=== PATIENT | female | born 1950 | race Two or more races ===

== ENCOUNTER 2021-12-24 04:49 | Inpatient (IN) | payer MEDICARE, OTHER ==
[~2021-12-24] VITALS: Ht 157.5 cm; Wt 101.2 kg
[2021-12-24 17:00] VITALS: BP 121/76
--- NOTE | 2021-12-24 17:00 | NUR ---
OFFICE CLERK ROUTINE NOTES PATIENT DIRECT ADMIT FROM [facility] ER PATIENT VISITED ER WITH HER FAMILY FOR PSYCH EVALUATION.PATIENT ON HOLD 5150 GD , DX OF PSYCHOSIS NOS, Hx OF SCHIZOPHRENIA NOT TAKING MEDICATION, AND UNABLE TO TAKE CARE SELF. PATIENT A/O X1, REFUSED TO SPEAK, REFUSED EAT. VSS, NO ACUTE RESPIRATORY DISTRESS, BS-137MG/DL, REFUSED PAIN. SKIN ASSESSMENT DONE SKIN INTACT. ASSIST PATIENT TO THE BATHROOM. MRSA OF NARES SPECIMEN TAKEN. Dr JOHNSON, AND DR ESTEBAN AWARE OF NEW PATIENT AND MEDICATION, CALL BEL NEAR TO REACH, BED ALARM ON. SAFETY PRECAUTION MAINTAINED ALL THE TIME.
[2021-12-24] MEDS ORDERED: RISP2TAB85 PO ×2 (17:10→20:38)
[2021-12-24] MEDS ORDERED: VITA400C74 PO (17:25)
[2021-12-24] MEDS ORDERED: ZOLP5TAB8 PO (17:25)
[2021-12-24] MEDS ORDERED: CHOL500062 PO ×2 (17:25→20:40)
[2021-12-24] MEDS ORDERED: ASCO500T10 PO (17:25)
[2021-12-24] MEDS ORDERED: MULT-479 PO (17:25)
[2021-12-24] MEDS ORDERED: LORA-259 PO (17:25)
[2021-12-24] MEDS ORDERED: LAMO25TA10 PO ×2 (17:25)
[2021-12-24] MEDS ORDERED: NORT25CA PO ×2 (17:25→20:37)
[2021-12-24] MEDS ORDERED: LISI2.5T2 PO (17:25)
[2021-12-24] MEDS ORDERED: ATOR10TA PO (17:25)
[2021-12-24] MEDS ORDERED: LEVO125T8 PO (17:25)
[2021-12-24] MEDS ORDERED: ARIP10TA57 PO (17:26)
[2021-12-24] MEDS ORDERED: MAG HYDROX/AL HYDROX/SIMETH 30 ML UDC PO PRN (17:30)
[2021-12-24] MEDS ORDERED: ACETAMINOPHEN 325 MG TABLET PO PRN (17:30)
[2021-12-24] MEDS ORDERED: BLOOD SUGAR DIAGNOSTIC 1 EACH STRIP IN ONE (17:30)
[2021-12-24] MEDS ORDERED: MAGNESIUM HYDROXIDE 30 ML UDC PO PRN (17:30)
[2021-12-24 20:00] VITALS: BP 159/71
[2021-12-24] MEDS ORDERED: ASPI-1420 PO (20:33)
[2021-12-24] MEDS: ZOLPIDEM TARTRATE 5 MG TABLET PO PRN (21:16)
--- NOTE | 2021-12-24 21:16 | NUR ---
GPS RN NOTE, PATIENT IS A DIRECT ADMIT NEEDS ACCU CHECK ORDER AND A MEDICATION RECONCILIATION. PAGED [facility] AND INFORMED DR ESTEBAN OF MY FINDINGS. DR ESTEBAN ORDERED MODERATE INSULIN SLIDING SCALE ACHS AND SAID SHE WILL DO THE MEDICATION RECONCILIATION WHEN SHE CAN. ALL ORDERS NOTED AND CARRIED OUT WILL CONTINUE TO MONITOR THIS PATIENT WITH THE HELP OF STAFF.
[2021-12-24] MEDS ORDERED: DEXTROSE 50%-WATER 50 ML DISP.SYRIN IV PRN (21:30)
[2021-12-25] MEDS ORDERED: BLOOD SUGAR DIAGNOSTIC 1 EACH STRIP VI SCH (07:00)
[2021-12-25] MEDS: LEVOTHYROXINE SODIUM 125 MCG TABLET PO SCH (07:00)
[2021-12-25] MEDS: BLOOD SUGAR DIAGNOSTIC 1 EACH STRIP VI SCH ×4 (07:39→22:02)
[2021-12-25 08:00] VITALS: BP 161/77
[2021-12-25] MEDS: LISINOPRIL (5MG) 5 MG TABLET PO SCH (09:00)
[2021-12-25] MEDS ORDERED: Medication Not On Formulary EA (Cholecalciferol (Vitamin D3) (Vitamin D3) 1 TAB) PO SCH (09:00)
[2021-12-25] MEDS: ASPIRIN EC 81 MG TABLET.DR PO SCH (09:00)
[2021-12-25] MEDS: MULTIVITAMIN/LUTEIN/MINERALS 1 TAB PO SCH (09:00)
[2021-12-25] MEDS: CHOLECALCIFEROL 1,000 UNIT TABLET (VIT D3) PO SCH (09:00)
[2021-12-25] MEDS: LamoTRIgine 25 MG TABLET PO SCH ×3 (09:00→22:03)
[2021-12-25] MEDS: VITAMIN E 400 UNIT CAPSULE PO SCH (09:00)
[2021-12-25] MEDS: ASCORBIC ACID 500 MG TABLET PO SCH (09:00)
--- NOTE | 2021-12-25 09:34 | NUR ---
AYDEE Initial Discharge Plan: Pt currently resides at [address] [place] [address] Rd, [place] [address]. Pt is unable to communicate her discahrge requests, however, the pt's spray dry operator, Ekta ([phone]) and pt's Saud stated that the pt can return home upon discharge.AYDEE will continue to work with pt, family, and MD to ensure a safe and proper discharge plan.
--- NOTE | 2021-12-25 09:37 | NUR ---
SW Admit Source: Patient was at [facility] in the ER for psych evaluation. Pt was unresponsive and was not answering any questions. Pt was not taking medications at home. Pt placed on a 5150 hold for GD and was brought to [facility]. Pt currently resides at [address] [place] [phone]. Pt is unable to communicate her discahrge requests, however, the pt's mine captain, Ekta ([phone]) and pt's Saud stated that the pt can return home upon discharge.
--- NOTE | 2021-12-25 09:46 | NUR ---
AYDEE Family Contact: AYDEE contacted patient's Saud ([phone]) and discussed treatment and discharge plan.
--- NOTE | 2021-12-25 10:25 | NUR ---
Called the office of Dr. Khoury and spoke to Aidee about the consult.
--- NOTE | 2021-12-25 11:37 | NUR ---
AYDEE Individual Therapy: AYDEE attempted to conduct therapy with pt. Pt did not answer to this underwriter. Pt kept her eyes closed and did not want to maintain any eye contact. AYDEE unable to conduct therapy at this time.
[2021-12-25 11:45] LABS: ALBUMIN 3.6 g/dL (3.4-5.0); BILIRUBIN,TOTAL 0.5 mg/dL (0.2-1.0); CALCIUM, SERUM 9.3 mg/dL (8.5-10.1)
[2021-12-25 12:19] LABS: POTASSIUM 4.2 mmol/L (3.5-5.1)
[2021-12-25 16:00] VITALS: BP 117/63
--- NOTE | 2021-12-25 16:22 | NUR ---
Dr. Spencer in the unit, examined the pt. and ordered Lamictal level for today.
[2021-12-25] MEDS: ENSURE ENLIVE 237 ML LIQUID (VANILLA) PO SCH (17:00)
[2021-12-25] MEDS: risperiDONE 1 MG TABLET PO SCH (17:00)
[2021-12-25 17:21] LABS: CHOLESTEROL 138 mg/dL (<200); HDL CHOLESTEROL 75 mg/dL (40-60); LDL 43 mg/dL (0-99); TRIGLYCERIDES 49 mg/dL (30-150)
[2021-12-25 17:29] LABS: THYROID STIMULATING HORMONE 2.795 uIU/mL (0.358-3.74)
--- NOTE | 2021-12-25 19:15 | NUR ---
RN NOTES; RECEIVED AWAKE SHE IS USING HER WALKER, VERY QUIET, ORIENTED TO UNIT AND STAFF, RN ASSIST HER TO GO BACK TO HER BED SHE REFUSED TO SIT DOWN BY THE BED SIDE, KEPT ON CLOSE WATCH, FALL AND SAFETY PRECAUTION OBSERVED.
[2021-12-25 20:00] VITALS: BP 109/51
[2021-12-25 20:16] VITALS: BP 109/51
[2021-12-25] MEDS: ATORVASTATIN 10 MG TABLET PO SCH (22:03)
[2021-12-25] MEDS: NORTRIPTYLINE HCL 25 MG CAPSULE PO SCH (22:03)
[2021-12-25] MEDS: *INSULIN REGULAR(HUMULIN R)HUM 100 UNIT/ML VIAL SQ PRN (22:06)
--- NOTE | 2021-12-25 22:17 | NUR ---
RN NOTES: AGREE FOR BLOOD SUGAR CHECKED-165, INSULIN GIVEN PER SCALE, SHE TOOK ALL HER ORAL MEDICATION WITH APPLESAUCE,INSTRUCT TO GO BACK TO BED AND SLEEP, SHE FOLLOW.WILL CONTINUE TO MONITOR FOR SIGN OF HYPER/HYPOGLYCEMIA.
--- NOTE | 2021-12-26 04:16 | NUR ---
RN NOTES: -AWAKE, AMBULATE WITH FWW, STEADY GAIT, SHE COMMUNICATE AND ANSWER QUESTION BY THE CHARGE NURSE,SHE UNDERSTAND THE REASON WHY SHE IS IN [facility] BECAUSE SHE CANNOT CARE FOR HERSELF,GIVEN SNACKS AND SHE ATE.
[2021-12-26] MEDS: LEVOTHYROXINE SODIUM 125 MCG TABLET PO SCH (06:06)
[2021-12-26] MEDS: BLOOD SUGAR DIAGNOSTIC 1 EACH STRIP VI SCH ×4 (07:30→21:45)
[2021-12-26 08:00] VITALS: BP 145/67
[2021-12-26] MEDS: ENSURE ENLIVE 237 ML LIQUID (VANILLA) PO SCH ×2 (08:00→17:00)
[2021-12-26] MEDS: LamoTRIgine 25 MG TABLET PO SCH ×3 (08:39→21:49)
[2021-12-26] MEDS: MULTIVITAMIN/LUTEIN/MINERALS 1 TAB PO SCH (08:39)
[2021-12-26] MEDS: ASPIRIN EC 81 MG TABLET.DR PO SCH (08:39)
[2021-12-26] MEDS: risperiDONE 1 MG TABLET PO SCH ×2 (08:40→17:00)
[2021-12-26] MEDS: CHOLECALCIFEROL 1,000 UNIT TABLET (VIT D3) PO SCH (08:40)
[2021-12-26] MEDS: LISINOPRIL (5MG) 5 MG TABLET PO SCH (08:40)
[2021-12-26] MEDS: VITAMIN E 400 UNIT CAPSULE PO SCH (08:40)
[2021-12-26] MEDS: ASCORBIC ACID 500 MG TABLET PO SCH (08:40)
--- NOTE | 2021-12-26 10:20 | NUR ---
GPS/RN PT REFUSED ACCUCHECK IN AM AND REFUSED TO TAKE MEDS OFFERED X3
[2021-12-26 16:00] VITALS: BP 149/88
--- NOTE | 2021-12-26 17:53 | NUR ---
GPS/RN PT REFUSED ACCUCHECK IN AM AND REFUSED TO TAKE MEDS OFFERED X3 GABBIE BEARD MAINFRAME CONSULTANT MADE AWARE
--- NOTE | 2021-12-26 19:30 | NUR ---
GPS RN NOTE, RECEIVED PATIENT AWAKE AND IN BED, NO S/S OR COMPLAINTS OF PAIN AT THIS TIME. PATIENT IS DISPLAYING NO S/S OF APPARENT DISTRESS AT THIS TIME. PATIENT BREATHING IS UNLABORED WITH EQUAL RISE AND FALL OF THE CHEST. PATIENT IS ALERT AND ORIENTED X 1-2 ON ROOM AIR WITH A SPO2 98%. PATIENT IS SELECTIVE WITH MEDICATIONS, CONFUSED AT TIMES, MUMBLING TO SELF, COOPERATIVE AND NEEDS REDIRECTION. PATIENT DENIES SUICIDAL AND HOMICIDAL IDEATIONS AT THIS TIME. PATIENT ASSISTED WITH TURNING AND REPOSITIONING Q2HR AND PRN FOR COMFORT AND CIRCULATION. PATIENT HAS NO NEEDS AT THIS TIME. PATIENT EDUCATED ON THE USE OF THE CALL VARNER. PATIENT BED SIDE RAILS UP X 2 FOR SAFETY. PATIENT BED IS LOCKED, LOW, WITH BED ALARM ON. WILL CONTINUE TO MONITOR THIS PATIENT Q15 MINUTES WITH THE HELP OF STAFF TO MAINTAIN SAFETY.
[2021-12-26 19:55] VITALS: BP 155/77
--- NOTE | 2021-12-26 21:45 | NUR ---
GPS RN NOTE, PERFORMED ACCU CHECK ON PATIENT WITH A BLOOD SUGAR RESULT OF 106. NO REGULAR INSULIN GIVEN PER SLIDING SCALE ORDERED. WILL CONTINUE TO MONITOR THIS PATIENT WITH THE HELP OF STAFF.
[2021-12-26] MEDS: NORTRIPTYLINE HCL 25 MG CAPSULE PO SCH (21:50)
[2021-12-26] MEDS: ATORVASTATIN 10 MG TABLET PO SCH (21:50)
--- NOTE | 2021-12-26 22:03 | NUR ---
GPS RN NOTE, PATIENT REFUSED LAMICTAL 25MG PO HS, LIPITOR 10 MG PO HS, AND PAMELOR 100MG PO HS. OFFERED MEDICATION THREE TIMES AND STILL PATIENT REFUSED SHAKING HER HEAD NO. EDUCATED PATIENT ON THE RISKS AND BENEFITS OF TAKING REFUSING AFOREMENTIONED MEDICATION. WILL CONTINUE TO MONITOR THIS PATIENT WITH THE HELP OF STAFF.
[2021-12-27] MEDS: LEVOTHYROXINE SODIUM 125 MCG TABLET PO SCH (07:00)
[2021-12-27] MEDS: BLOOD SUGAR DIAGNOSTIC 1 EACH STRIP VI SCH ×4 (07:30→21:47)
[2021-12-27 08:00] VITALS: BP 142/93
[2021-12-27] MEDS: ENSURE ENLIVE 237 ML LIQUID (VANILLA) PO SCH ×2 (08:00→17:00)
[2021-12-27] MEDS: ASCORBIC ACID 500 MG TABLET PO SCH (08:43)
[2021-12-27] MEDS: MULTIVITAMIN/LUTEIN/MINERALS 1 TAB PO SCH (08:43)
[2021-12-27] MEDS: LamoTRIgine 25 MG TABLET PO SCH ×3 (08:43→21:47)
[2021-12-27] MEDS: ASPIRIN EC 81 MG TABLET.DR PO SCH (08:43)
[2021-12-27] MEDS: LISINOPRIL (5MG) 5 MG TABLET PO SCH (08:43)
[2021-12-27] MEDS: CHOLECALCIFEROL 1,000 UNIT TABLET (VIT D3) PO SCH (08:43)
[2021-12-27] MEDS: risperiDONE 1 MG TABLET PO SCH ×2 (08:43→17:00)
[2021-12-27] MEDS: VITAMIN E 400 UNIT CAPSULE PO SCH (08:44)
[2021-12-27 16:00] VITALS: BP 160/64
[2021-12-27] MEDS: LORAZEPAM 0.5 MG TABLET PO PRN (20:10)
--- NOTE | 2021-12-27 20:13 | NUR ---
GPS RN NOTE: ANXIETY PATIENT IS ANXIOUS AND RESTLESS, PRN ATIVAN 1 MG PO ADMINISTERED. WILL CONTINUE TO MONITOR.
--- NOTE | 2021-12-27 21:42 | NUR ---
GPS RN NOTE PATIENT'S BS LEVEL IS 128 MG/DL, NO SSI COVERAGE NEEDED AT THIS TIME.
[2021-12-27] MEDS: ATORVASTATIN 10 MG TABLET PO SCH (21:47)
[2021-12-27] MEDS: NORTRIPTYLINE HCL 25 MG CAPSULE PO SCH (22:00)
--- NOTE | 2021-12-27 22:07 | NUR ---
GPS RN NOTE: MEDICATION REFUSAL PATIENT REFUSED PAMELOR 100 MG X 3 DESPITE OF RISKS AND BENEFITS EXPLANATIONS, PATIENT STATED," I DON'T WANT IT." PATIENT TOOK LAMICTAL AND LIPITOR, ORDERED. ALSO AGREED TO HAVE BLOOD SUGAR LEVEL CHECKED WELL BUT CONTINUED TO REFUSE TO TAKE PAMELOR ORDERED TONIGHT. PATIENT IS SELECTIVE WITH MEDS NAD UNCOOPERATIVE AT THIS TIME.
[2021-12-28] MEDS ORDERED: Z GUARD REMEDY 4 OZ OINT TP PRN (00:30)
[2021-12-28] MEDS: ZOLPIDEM TARTRATE 5 MG TABLET PO PRN (01:29)
--- NOTE | 2021-12-28 01:32 | NUR ---
GPS RN NOTE: INSOMNIA PATIENT IS AWAKE AT THIS TIME AND VERBALIZED INABILITY TO SLEEP. PRN AMBIEN 5 MG 1 TAB PO ADMINISTERED. WILL CONTINUE TO MONITOR.
[2021-12-28] MEDS: LEVOTHYROXINE SODIUM 125 MCG TABLET PO SCH (06:58)
[2021-12-28 08:00] VITALS: BP 136/55
[2021-12-28] MEDS: BLOOD SUGAR DIAGNOSTIC 1 EACH STRIP VI SCH ×4 (08:29→21:18)
[2021-12-28] MEDS: ENSURE ENLIVE 237 ML LIQUID (VANILLA) PO SCH ×2 (08:29→16:07)
[2021-12-28] MEDS: ASPIRIN EC 81 MG TABLET.DR PO SCH (09:00)
[2021-12-28] MEDS: Z GUARD REMEDY 4 OZ OINT TP SCH (09:05)
[2021-12-28] MEDS: VITAMIN E 400 UNIT CAPSULE PO SCH (09:11)
[2021-12-28] MEDS: LISINOPRIL (5MG) 5 MG TABLET PO SCH (09:11)
[2021-12-28] MEDS: CHOLECALCIFEROL 1,000 UNIT TABLET (VIT D3) PO SCH (09:11)
[2021-12-28] MEDS: ASCORBIC ACID 500 MG TABLET PO SCH (09:11)
[2021-12-28] MEDS: LamoTRIgine 25 MG TABLET PO SCH ×3 (09:12→21:11)
[2021-12-28] MEDS: risperiDONE 1 MG TABLET PO SCH ×2 (09:12→16:58)
[2021-12-28] MEDS: MULTIVITAMIN/LUTEIN/MINERALS 1 TAB PO SCH (09:13)
--- NOTE | 2021-12-28 10:32 | NUR ---
AYDEE MITCHELL Hearing Notification: tailings worker contacted patient's ([phone]) and notified patient's probable cause of hearing today.
--- NOTE | 2021-12-28 10:45 | NUR ---
SHAREPOINT ANALYST CONTACTED PT'S AND INFORMED HIM OF PATIENT'S PROBABLE CAUSE OF HEARING TODAY.
--- NOTE | 2021-12-28 11:37 | NUR ---
BS 135. PT REFUSES INSULIN AT THIS TIME.
--- NOTE | 2021-12-28 11:44 | NUR ---
Court Hearing: Patient's court hearing for 7270 was today and it was upheld for GD.
[2021-12-28 16:00] VITALS: BP 103/60
--- NOTE | 2021-12-28 16:14 | NUR ---
AYDEE Individual Therapy: SW met with patient at bedside for individual therapy regarding positive coping mechanisms. Pt. stated, "my throat feels tied up". Pt. is having difficulty engaging in conversation. Pt. did state she has been feeling sad & depressed "lately". SW used active listenign and validated patient's emotions. SW will continue to assess patient's ability to participate in therapy.
[2021-12-28] MEDS: INSULIN REGULAR, HUMAN 100 UNIT/ML 3 ML VIAL SQ PRN (17:02)
[2021-12-28 20:02] VITALS: BP 127/72
[2021-12-28] MEDS: ATORVASTATIN 10 MG TABLET PO SCH (21:11)
[2021-12-28] MEDS: NORTRIPTYLINE HCL 25 MG CAPSULE PO SCH (21:15)
--- NOTE | 2021-12-28 21:35 | NUR ---
GPS RN NOTE PATIENT'S BLOOD SUGAR IS 81 MG/DL, ORANGE JUICE OFFERED AND TOLERATED WELL. NO ACUTE CHANGES NOTED. WILL CONTINUE TO MONITOR.
[2021-12-29 07:29] LABS: CALCIUM, SERUM 8.7 mg/dL (8.5-10.1); POTASSIUM 3.5 mmol/L (3.5-5.1)
[2021-12-29] MEDS: BLOOD SUGAR DIAGNOSTIC 1 EACH STRIP VI SCH ×4 (07:30→21:38)
[2021-12-29 08:00] VITALS: BP 134/63
[2021-12-29] MEDS: ENSURE ENLIVE 237 ML LIQUID (VANILLA) PO SCH ×2 (08:00→17:59)
[2021-12-29] MEDS: Z GUARD REMEDY 4 OZ OINT TP SCH (10:44)
[2021-12-29] MEDS: ASPIRIN EC 81 MG TABLET.DR PO SCH (10:45)
[2021-12-29] MEDS: MULTIVITAMIN/LUTEIN/MINERALS 1 TAB PO SCH (10:45)
[2021-12-29] MEDS: CHOLECALCIFEROL 1,000 UNIT TABLET (VIT D3) PO SCH (10:45)
[2021-12-29] MEDS: LEVOTHYROXINE SODIUM 125 MCG TABLET PO SCH (10:46)
[2021-12-29] MEDS: LamoTRIgine 25 MG TABLET PO SCH ×3 (10:46→21:50)
[2021-12-29] MEDS: risperiDONE 1 MG TABLET PO SCH ×2 (10:46→17:59)
[2021-12-29] MEDS: ASCORBIC ACID 500 MG TABLET PO SCH (10:47)
[2021-12-29] MEDS: LISINOPRIL (5MG) 5 MG TABLET PO SCH (10:47)
[2021-12-29] MEDS: VITAMIN E 400 UNIT CAPSULE PO SCH (10:54)
--- NOTE | 2021-12-29 15:25 | NUR ---
QUIET,COOPERATIVE.KEEPS TO SELF.
[2021-12-29 16:00] VITALS: BP 141/59
[2021-12-29 19:55] VITALS: BP 103/52
[2021-12-29 20:35] VITALS: BP 103/52
[2021-12-29] MEDS: ATORVASTATIN 10 MG TABLET PO SCH (21:31)
[2021-12-29] MEDS: NORTRIPTYLINE HCL 25 MG CAPSULE PO SCH (21:31)
[2021-12-30] MEDS: LEVOTHYROXINE SODIUM 125 MCG TABLET PO SCH (06:34)
[2021-12-30] MEDS: BLOOD SUGAR DIAGNOSTIC 1 EACH STRIP VI SCH ×4 (06:47→22:25)
--- NOTE | 2021-12-30 06:47 | NUR ---
GPS RN NOTE: PATIENT'S BLOOD SUGAR LEVEL IS 130 MG/DL AT THIS TIME. NO SSI COVERAGE NEEDED. WILL ENDORSE TO AM RN.
[2021-12-30 08:00] VITALS: BP 115/59
[2021-12-30] MEDS: ENSURE ENLIVE 237 ML LIQUID (VANILLA) PO SCH ×2 (08:00→17:00)
[2021-12-30] MEDS: INSULIN REGULAR, HUMAN 100 UNIT/ML 3 ML VIAL SQ PRN (08:00)
[2021-12-30] MEDS: Z GUARD REMEDY 4 OZ OINT TP SCH (09:00)
[2021-12-30] MEDS: LamoTRIgine 25 MG TABLET PO SCH ×2 (09:00→22:00)
[2021-12-30] MEDS: ASCORBIC ACID 500 MG TABLET PO SCH (09:00)
[2021-12-30] MEDS: CHOLECALCIFEROL 1,000 UNIT TABLET (VIT D3) PO SCH ×2 (09:00→09:58)
[2021-12-30] MEDS: LISINOPRIL (5MG) 5 MG TABLET PO SCH (09:00)
[2021-12-30] MEDS: MULTIVITAMIN/LUTEIN/MINERALS 1 TAB PO SCH ×2 (09:00→09:59)
[2021-12-30] MEDS: VITAMIN E 400 UNIT CAPSULE PO SCH ×2 (09:00→09:58)
[2021-12-30] MEDS: ASPIRIN EC 81 MG TABLET.DR PO SCH ×2 (09:00→09:58)
[2021-12-30] MEDS: risperiDONE 1 MG TABLET PO SCH ×2 (09:58→17:00)
[2021-12-30 16:00] VITALS: BP 124/57
[2021-12-30 20:15] VITALS: BP 118/62
[2021-12-30] MEDS: ATORVASTATIN 10 MG TABLET PO SCH (22:00)
[2021-12-30] MEDS: NORTRIPTYLINE HCL 25 MG CAPSULE PO SCH (22:00)
[2021-12-30] MEDS: *INSULIN REGULAR(HUMULIN R)HUM 100 UNIT/ML VIAL SQ PRN (22:26)
--- NOTE | 2021-12-30 22:27 | NUR ---
GPS/COMMUNITY OUTREACH WORKER NOTES: PT. REFUSED ALL HS MEDS. OFFERED 3X. EXPLAINED RISK AND BENEFITS. PT. STILL REFUSED. ALSO REFUSED HS INSULIN COVERAGE. BS NOTED AT 135.
[2021-12-31 08:00] VITALS: BP 117/64
[2021-12-31] MEDS: BLOOD SUGAR DIAGNOSTIC 1 EACH STRIP VI SCH ×4 (08:16→22:09)
[2021-12-31] MEDS: ENSURE ENLIVE 237 ML LIQUID (VANILLA) PO SCH ×2 (08:16→16:27)
[2021-12-31] MEDS: VITAMIN E 400 UNIT CAPSULE PO SCH (08:17)
[2021-12-31] MEDS: LEVOTHYROXINE SODIUM 125 MCG TABLET PO SCH (08:17)
[2021-12-31] MEDS: ASPIRIN EC 81 MG TABLET.DR PO SCH (08:17)
[2021-12-31] MEDS: LISINOPRIL (5MG) 5 MG TABLET PO SCH (08:17)
[2021-12-31] MEDS: CHOLECALCIFEROL 1,000 UNIT TABLET (VIT D3) PO SCH (08:17)
[2021-12-31] MEDS: MULTIVITAMIN/LUTEIN/MINERALS 1 TAB PO SCH (08:17)
[2021-12-31] MEDS: ASCORBIC ACID 500 MG TABLET PO SCH (08:17)
[2021-12-31] MEDS: risperiDONE 1 MG TABLET PO SCH ×3 (08:18→16:26)
[2021-12-31] MEDS: Z GUARD REMEDY 4 OZ OINT TP SCH (09:35)
[2021-12-31 16:00] VITALS: BP 124/75
--- NOTE | 2021-12-31 19:20 | NUR ---
gps turn down attendant opening notes: pt sitting in bed, awake. calm. no acute distress noted. on room air, breathing even and unlabored. no c/o pain. patient has no needs at this time. safety environment observed. will continue monitoring q15 mins for safety and behavior with the help of staff.
[2021-12-31 20:00] VITALS: BP 131/46
[2021-12-31] MEDS: LamoTRIgine 25 MG TABLET PO SCH (21:27)
[2021-12-31] MEDS: ATORVASTATIN 10 MG TABLET PO SCH (21:27)
[2021-12-31] MEDS: NORTRIPTYLINE HCL 25 MG CAPSULE PO SCH (21:27)
[2022-01-01] MEDS: LEVOTHYROXINE SODIUM 125 MCG TABLET PO SCH (06:26)
[2022-01-01] MEDS: BLOOD SUGAR DIAGNOSTIC 1 EACH STRIP VI SCH ×4 (07:36→21:45)
[2022-01-01 08:00] VITALS: BP 146/69
[2022-01-01] MEDS: ENSURE ENLIVE 237 ML LIQUID (VANILLA) PO SCH ×2 (08:10→17:13)
[2022-01-01] MEDS: risperiDONE 1 MG TABLET PO SCH ×3 (08:11→17:13)
[2022-01-01] MEDS: CHOLECALCIFEROL 1,000 UNIT TABLET (VIT D3) PO SCH (08:11)
[2022-01-01] MEDS: ASPIRIN EC 81 MG TABLET.DR PO SCH (08:11)
[2022-01-01] MEDS: ASCORBIC ACID 500 MG TABLET PO SCH (08:11)
[2022-01-01] MEDS: MULTIVITAMIN/LUTEIN/MINERALS 1 TAB PO SCH (08:11)
[2022-01-01] MEDS: LISINOPRIL (5MG) 5 MG TABLET PO SCH (08:12)
[2022-01-01] MEDS: VITAMIN E 400 UNIT CAPSULE PO SCH (08:12)
[2022-01-01] MEDS: Z GUARD REMEDY 4 OZ OINT TP SCH (10:07)
[2022-01-01 16:00] VITALS: BP 150/62
[2022-01-01 20:18] VITALS: BP 149/64
[2022-01-01] MEDS: NORTRIPTYLINE HCL 25 MG CAPSULE PO SCH (21:06)
[2022-01-01] MEDS: ATORVASTATIN 10 MG TABLET PO SCH (21:06)
[2022-01-01] MEDS: LamoTRIgine 25 MG TABLET PO SCH (21:07)
[2022-01-02 08:00] VITALS: BP 153/75
[2022-01-02] MEDS: ENSURE ENLIVE 237 ML LIQUID (VANILLA) PO SCH ×2 (08:00→17:00)
[2022-01-02] MEDS: BLOOD SUGAR DIAGNOSTIC 1 EACH STRIP VI SCH ×4 (11:03→22:04)
[2022-01-02] MEDS: Z GUARD REMEDY 4 OZ OINT TP SCH (11:04)
--- NOTE | 2022-01-02 11:05 | NUR ---
REFUSD AM INSULIN COVERAGE.
[2022-01-02] MEDS: CHOLECALCIFEROL 1,000 UNIT TABLET (VIT D3) PO SCH (11:10)
[2022-01-02] MEDS: ASCORBIC ACID 500 MG TABLET PO SCH (11:10)
[2022-01-02] MEDS: VITAMIN E 400 UNIT CAPSULE PO SCH (11:11)
[2022-01-02] MEDS: LEVOTHYROXINE SODIUM 125 MCG TABLET PO SCH (11:11)
[2022-01-02] MEDS: MULTIVITAMIN/LUTEIN/MINERALS 1 TAB PO SCH (11:11)
[2022-01-02] MEDS: risperiDONE 1 MG TABLET PO SCH ×3 (11:12→18:10)
[2022-01-02] MEDS: LISINOPRIL (5MG) 5 MG TABLET PO SCH (11:13)
[2022-01-02] MEDS: ASPIRIN EC 81 MG TABLET.DR PO SCH (11:17)
[2022-01-02 16:00] VITALS: BP 150/82
--- NOTE | 2022-01-02 18:45 | NUR ---
QUIET,STARTED ON NEW MEDS,MED COMPLIANT.
--- NOTE | 2022-01-02 18:55 | NUR ---
KEEPS TO SELF,ISOLATIVE,POOR APPETITE.
[2022-01-02 20:21] VITALS: BP 144/66
[2022-01-02] MEDS: LORAZEPAM 0.5 MG TABLET PO PRN (20:30)
--- NOTE | 2022-01-02 20:33 | NUR ---
RN NOTES : ANXIETY PT. C/O FEELING VERY ANXIOUS PARANOID , RESTLESS, PRN ATIVAN 1 MG PO GIVEN, WILL CONTINUE TO MONITOR.
[2022-01-02 21:00] VITALS: BP 128/70
[2022-01-02] MEDS: ATORVASTATIN 10 MG TABLET PO SCH (21:51)
[2022-01-02] MEDS: LamoTRIgine 25 MG TABLET PO SCH (21:51)
[2022-01-02] MEDS: NORTRIPTYLINE HCL 25 MG CAPSULE PO SCH (21:51)
--- NOTE | 2022-01-03 07:30 | NUR ---
RN NOTE BLOOD SUGAR CHECK AT THE LEVEL OF 190. PATIENT REFUSED AM INSULIN COVERAGE.
[2022-01-03 08:00] VITALS: BP 137/53
[2022-01-03] MEDS: CHOLECALCIFEROL 1,000 UNIT TABLET (VIT D3) PO SCH (09:02)
[2022-01-03] MEDS: MULTIVITAMIN/LUTEIN/MINERALS 1 TAB PO SCH (09:02)
[2022-01-03] MEDS: ASCORBIC ACID 500 MG TABLET PO SCH (09:02)
[2022-01-03] MEDS: LEVOTHYROXINE SODIUM 125 MCG TABLET PO SCH (09:03)
[2022-01-03] MEDS: ENSURE ENLIVE 237 ML LIQUID (VANILLA) PO SCH ×2 (09:03→16:57)
[2022-01-03] MEDS: ASPIRIN EC 81 MG TABLET.DR PO SCH (09:03)
[2022-01-03] MEDS: LISINOPRIL (5MG) 5 MG TABLET PO SCH (09:03)
[2022-01-03] MEDS: BLOOD SUGAR DIAGNOSTIC 1 EACH STRIP VI SCH ×4 (09:04→22:00)
[2022-01-03] MEDS: Z GUARD REMEDY 4 OZ OINT TP SCH (09:04)
[2022-01-03] MEDS: VITAMIN E 400 UNIT CAPSULE PO SCH (09:04)
[2022-01-03] MEDS: risperiDONE 1 MG TABLET PO SCH ×3 (09:04→16:57)
[2022-01-03 16:00] VITALS: BP 144/63
--- NOTE | 2022-01-03 17:30 | NUR ---
RN NOTE CHECKED PATIENT'S BLOOD SUGAR: 91. NO INSULIN COVERAGE.
[2022-01-03 19:58] VITALS: BP 141/67
[2022-01-03] MEDS: ATORVASTATIN 10 MG TABLET PO SCH (22:00)
[2022-01-03] MEDS: NORTRIPTYLINE HCL 25 MG CAPSULE PO SCH (22:00)
[2022-01-03] MEDS: LamoTRIgine 25 MG TABLET PO SCH (22:00)
--- NOTE | 2022-01-03 23:36 | NUR ---
GPS RN NOTES PATIENT AWAKE, AMBULATING IN HALLWAY WITH ASSISTIVE DEVICE/WALKER; PATIENT NON-VERBAL AND NON-INTERACTIVE WITH STAFF; PATIENT DOES NOT ENGAGE OR RESPOND WHEN BEING SPOKEN TOO; CHARGE NURSE AWARE;
[2022-01-04] MEDS: BLOOD SUGAR DIAGNOSTIC 1 EACH STRIP VI SCH ×5 (00:20→21:24)
[2022-01-04 08:00] VITALS: BP 141/69
[2022-01-04] MEDS: Z GUARD REMEDY 4 OZ OINT TP SCH (08:48)
[2022-01-04] MEDS: ENSURE ENLIVE 237 ML LIQUID (VANILLA) PO SCH ×2 (08:49→16:45)
[2022-01-04] MEDS: MULTIVITAMIN/LUTEIN/MINERALS 1 TAB PO SCH (08:59)
[2022-01-04] MEDS: CHOLECALCIFEROL 1,000 UNIT TABLET (VIT D3) PO SCH (08:59)
[2022-01-04] MEDS: ASPIRIN EC 81 MG TABLET.DR PO SCH (08:59)
[2022-01-04] MEDS: ASCORBIC ACID 500 MG TABLET PO SCH (08:59)
[2022-01-04] MEDS: VITAMIN E 400 UNIT CAPSULE PO SCH (09:00)
[2022-01-04] MEDS: LISINOPRIL (5MG) 5 MG TABLET PO SCH (09:00)
[2022-01-04] MEDS: risperiDONE 1 MG TABLET PO SCH ×2 (09:00→16:45)
[2022-01-04] MEDS: LEVOTHYROXINE SODIUM 125 MCG TABLET PO SCH (09:01)
[2022-01-04 16:00] VITALS: BP 138/70
[2022-01-04] MEDS: LORAZEPAM 0.5 MG TABLET PO PRN (20:04)
--- NOTE | 2022-01-04 20:04 | NUR ---
RN NOTES : ANXIETY PT. C/O FEELING VERY ANXIOUS PARANOID , RESTLESS, PRN ATIVAN 1 MG PO GIVEN, WILL CONTINUE TO MONITOR.
[2022-01-04 20:45] VITALS: BP 159/76
[2022-01-04 21:00] VITALS: BP 122/74
[2022-01-04] MEDS: LamoTRIgine 25 MG TABLET PO SCH (21:23)
[2022-01-04] MEDS: ATORVASTATIN 10 MG TABLET PO SCH (21:23)
[2022-01-04] MEDS: NORTRIPTYLINE HCL 25 MG CAPSULE PO SCH (21:24)
[2022-01-05] MEDS: LEVOTHYROXINE SODIUM 125 MCG TABLET PO SCH (07:05)
[2022-01-05] MEDS: BLOOD SUGAR DIAGNOSTIC 1 EACH STRIP VI SCH ×4 (07:21→22:38)
[2022-01-05] MEDS: ENSURE ENLIVE 237 ML LIQUID (VANILLA) PO SCH ×2 (07:41→16:57)
[2022-01-05 08:00] VITALS: BP 128/55
[2022-01-05] MEDS: LISINOPRIL (5MG) 5 MG TABLET PO SCH (09:00)
[2022-01-05] MEDS: Z GUARD REMEDY 4 OZ OINT TP SCH (09:25)
[2022-01-05] MEDS: CHOLECALCIFEROL 1,000 UNIT TABLET (VIT D3) PO SCH (09:29)
[2022-01-05] MEDS: MULTIVITAMIN/LUTEIN/MINERALS 1 TAB PO SCH (09:29)
[2022-01-05] MEDS: risperiDONE 1 MG TABLET PO SCH ×2 (09:29→16:58)
[2022-01-05] MEDS: ASPIRIN EC 81 MG TABLET.DR PO SCH (09:29)
[2022-01-05] MEDS: ASCORBIC ACID 500 MG TABLET PO SCH (09:29)
[2022-01-05] MEDS: VITAMIN E 400 UNIT CAPSULE PO SCH (09:29)
[2022-01-05 16:00] VITALS: BP 143/62
[2022-01-05] MEDS: ATORVASTATIN 10 MG TABLET PO SCH (22:28)
[2022-01-05] MEDS: LamoTRIgine 25 MG TABLET PO SCH (22:28)
[2022-01-05] MEDS: NORTRIPTYLINE HCL 25 MG CAPSULE PO SCH (22:28)
[2022-01-06] MEDS: LEVOTHYROXINE SODIUM 125 MCG TABLET PO SCH (07:04)
[2022-01-06 08:00] VITALS: BP 126/54
[2022-01-06] MEDS: ENSURE ENLIVE 237 ML LIQUID (VANILLA) PO SCH ×2 (08:09→16:54)
[2022-01-06] MEDS: BLOOD SUGAR DIAGNOSTIC 1 EACH STRIP VI SCH ×4 (08:09→22:28)
--- NOTE | 2022-01-06 08:51 | NUR ---
AYDEE Family Contact: AYDEE spoke with patient's Saud ([phone]) and discussed about pt's status. He stated that he cannot take care of pt at home due to her unpredictable behavior. SW recommended nursing facility and he was agreeable. AYDEE expressed that this program writer is able to send clinicals to a couple of facilities in [place], he was agreeable with this. However, SW explained that if they do not accept this program writer will locate another facility in [place], he was agreeable.
--- NOTE | 2022-01-06 08:53 | NUR ---
SNF Referral: AYDEE sent clinicals to Su goodwin ([phone]) for placement option at [facility]. SW sent H & P, progress notes, and medication list.
[2022-01-06] MEDS: LISINOPRIL (5MG) 5 MG TABLET PO SCH (09:00)
[2022-01-06] MEDS: Z GUARD REMEDY 4 OZ OINT TP SCH (09:52)
[2022-01-06] MEDS: CHOLECALCIFEROL 1,000 UNIT TABLET (VIT D3) PO SCH (09:55)
[2022-01-06] MEDS: risperiDONE 1 MG TABLET PO SCH ×2 (09:55→16:55)
[2022-01-06] MEDS: VITAMIN E 400 UNIT CAPSULE PO SCH (09:55)
[2022-01-06] MEDS: ASPIRIN EC 81 MG TABLET.DR PO SCH (09:56)
[2022-01-06] MEDS: ASCORBIC ACID 500 MG TABLET PO SCH (09:56)
[2022-01-06] MEDS: MULTIVITAMIN/LUTEIN/MINERALS 1 TAB PO SCH (09:56)
[2022-01-06] MEDS: INSULIN REGULAR, HUMAN 100 UNIT/ML 3 ML VIAL SQ PRN ×2 (12:19→17:02)
--- NOTE | 2022-01-06 13:52 | NUR ---
SNF Referral: SW spoke with Su goodwin ([phone]) who stated that pt is accepted at [facility].
[2022-01-06 16:00] VITALS: BP 150/88
[2022-01-06 20:25] VITALS: BP 157/66
[2022-01-06] MEDS: NORTRIPTYLINE HCL 25 MG CAPSULE PO SCH (21:58)
[2022-01-06] MEDS: LamoTRIgine 25 MG TABLET PO SCH (21:58)
[2022-01-06] MEDS: ATORVASTATIN 10 MG TABLET PO SCH (21:58)
[2022-01-07] MEDS: BLOOD SUGAR DIAGNOSTIC 1 EACH STRIP VI SCH ×4 (07:26→21:21)
[2022-01-07] MEDS: INSULIN REGULAR, HUMAN 100 UNIT/ML 3 ML VIAL SQ PRN (07:29)
[2022-01-07 08:00] VITALS: BP 141/76
[2022-01-07] MEDS: CHOLECALCIFEROL 1,000 UNIT TABLET (VIT D3) PO SCH (08:03)
[2022-01-07] MEDS: ASCORBIC ACID 500 MG TABLET PO SCH (08:03)
[2022-01-07] MEDS: MULTIVITAMIN/LUTEIN/MINERALS 1 TAB PO SCH (08:03)
[2022-01-07] MEDS: VITAMIN E 400 UNIT CAPSULE PO SCH (08:03)
[2022-01-07] MEDS: LEVOTHYROXINE SODIUM 125 MCG TABLET PO SCH (08:04)
[2022-01-07] MEDS: risperiDONE 1 MG TABLET PO SCH ×2 (08:04→16:19)
[2022-01-07] MEDS: LISINOPRIL (5MG) 5 MG TABLET PO SCH (08:04)
[2022-01-07] MEDS: ENSURE ENLIVE 237 ML LIQUID (VANILLA) PO SCH ×2 (08:12→16:19)
[2022-01-07] MEDS: ASPIRIN EC 81 MG TABLET.DR PO SCH (08:12)
[2022-01-07] MEDS: Z GUARD REMEDY 4 OZ OINT TP SCH (08:13)
--- NOTE | 2022-01-07 09:21 | NUR ---
AYDEE Family Contact: AYDEE contacted patient's Saud ([phone]) and left a detailed voicemail that pt is accepted at [facility].
[2022-01-07 16:00] VITALS: BP 144/67
[2022-01-07 20:00] VITALS: BP 162/68
[2022-01-07] MEDS: ZOLPIDEM TARTRATE 5 MG TABLET PO PRN (21:43)
[2022-01-07] MEDS: NORTRIPTYLINE HCL 25 MG CAPSULE PO SCH (21:43)
[2022-01-07] MEDS: ATORVASTATIN 10 MG TABLET PO SCH (21:43)
[2022-01-07] MEDS: LamoTRIgine 25 MG TABLET PO SCH (21:43)
--- NOTE | 2022-01-08 03:28 | NUR ---
RN Notes: keeps to her self. Will come out of the room to ambulate with the walker, slow steady gait. She will smile and there will be eye contact if her name is spoken. She will verbalize her needs. Requested Ambien for sleep, she states she takes it when she is home. medication effective
[2022-01-08] MEDS: LEVOTHYROXINE SODIUM 125 MCG TABLET PO SCH (06:29)
[2022-01-08] MEDS: BLOOD SUGAR DIAGNOSTIC 1 EACH STRIP VI SCH ×4 (07:50→21:44)
[2022-01-08] MEDS: INSULIN REGULAR, HUMAN 100 UNIT/ML 3 ML VIAL SQ PRN ×3 (07:52→16:55)
[2022-01-08 08:00] VITALS: BP 147/74
[2022-01-08] MEDS: ENSURE ENLIVE 237 ML LIQUID (VANILLA) PO SCH ×2 (08:00→16:22)
[2022-01-08] MEDS: ASCORBIC ACID 500 MG TABLET PO SCH (09:03)
[2022-01-08] MEDS: Z GUARD REMEDY 4 OZ OINT TP SCH (09:03)
[2022-01-08] MEDS: VITAMIN E 400 UNIT CAPSULE PO SCH (09:03)
[2022-01-08] MEDS: ASPIRIN EC 81 MG TABLET.DR PO SCH (09:03)
[2022-01-08] MEDS: CHOLECALCIFEROL 1,000 UNIT TABLET (VIT D3) PO SCH (09:03)
[2022-01-08] MEDS: MULTIVITAMIN/LUTEIN/MINERALS 1 TAB PO SCH (09:03)
[2022-01-08] MEDS: risperiDONE 1 MG TABLET PO SCH ×2 (09:03→16:22)
[2022-01-08] MEDS: LISINOPRIL (5MG) 5 MG TABLET PO SCH (09:04)
[2022-01-08 15:57] VITALS: BP 131/67
[2022-01-08 15:58] VITALS: BP 140/67
--- NOTE | 2022-01-08 19:30 | NUR ---
GPS RN OPENING NOTE RECEIVED PATIENT IN BED AWAKE. A/OX2. PT STABLE ON ROOM AIR. NO SOB OR S/S OF RESPIRATORY DISTRESS. PT IS MED COMPLIENT, DISHEVELED, DISORGANIZED, COOPERATIVE, AND NEEDS REDIRECTION. PATIENT DENIES SUICIDAL IDEATIONS AT THIS TIME. SAFETY PRECAUTIONS IN PLACE. BED IN LOWEST LOCKED POSITION, SIDE RAILS UP X2 FOR SAFETY, AND CALL LIGHT IN REACH. WILL CONTINUE WITH PLAN OF CARE.
[2022-01-08 20:00] VITALS: BP 114/90
[2022-01-08] MEDS: ATORVASTATIN 10 MG TABLET PO SCH (21:33)
[2022-01-08] MEDS: NORTRIPTYLINE HCL 25 MG CAPSULE PO SCH (21:33)
[2022-01-08] MEDS: LamoTRIgine 25 MG TABLET PO SCH (21:33)
[2022-01-08] MEDS: ZOLPIDEM TARTRATE 5 MG TABLET PO PRN (21:34)
--- NOTE | 2022-01-08 21:43 | NUR ---
RN NOTE PATIENT COMPLAINED OF INSOMNIA. PATIENT REQUESTED SOMETHING TO SLEEP. ADMINISTERED AMBIEN 5 MG PO ORDERED FOR INSOMNIA. WILL CONTINUE WITH PLAN OF CARE.
[2022-01-09 08:00] VITALS: BP 145/61
[2022-01-09] MEDS: ENSURE ENLIVE 237 ML LIQUID (VANILLA) PO SCH ×2 (08:40→17:18)
[2022-01-09] MEDS: BLOOD SUGAR DIAGNOSTIC 1 EACH STRIP VI SCH ×4 (08:40→21:57)
[2022-01-09] MEDS: INSULIN REGULAR, HUMAN 100 UNIT/ML 3 ML VIAL SQ PRN (09:39)
[2022-01-09] MEDS: Z GUARD REMEDY 4 OZ OINT TP SCH (09:53)
[2022-01-09] MEDS: CHOLECALCIFEROL 1,000 UNIT TABLET (VIT D3) PO SCH (09:54)
[2022-01-09] MEDS: MULTIVITAMIN/LUTEIN/MINERALS 1 TAB PO SCH (09:55)
[2022-01-09] MEDS: LISINOPRIL (5MG) 5 MG TABLET PO SCH (09:55)
[2022-01-09] MEDS: risperiDONE 1 MG TABLET PO SCH ×3 (09:55→22:00)
[2022-01-09] MEDS: ASCORBIC ACID 500 MG TABLET PO SCH (09:55)
[2022-01-09] MEDS: ASPIRIN EC 81 MG TABLET.DR PO SCH (09:56)
[2022-01-09] MEDS: LEVOTHYROXINE SODIUM 125 MCG TABLET PO SCH (09:56)
[2022-01-09] MEDS: VITAMIN E 400 UNIT CAPSULE PO SCH (09:56)
[2022-01-09 16:00] VITALS: BP 129/67
--- NOTE | 2022-01-09 18:16 | NUR ---
SEEMS DEPRESSED,MED COMPLIANT.STAYS IN RM.MAINLY ISOLATIVE.VS STABLE.
--- NOTE | 2022-01-09 19:30 | NUR ---
RN OPENING NOTE PATIENT ASLEEP IN BED. A/OX2. NO S/S OF DISTRESS; BREATHING UNLABORED ON RM AIR. SAFETY MEASURES IN PLACE: BED AT LOWEST POSITION, CALL LIGHT WITHIN ACCESS. WILL CONTINUE TO MONITOR PATIENT.
[2022-01-09 20:00] VITALS: BP 113/61
[2022-01-09] MEDS: ATORVASTATIN 10 MG TABLET PO SCH (21:55)
[2022-01-09] MEDS: NORTRIPTYLINE HCL 25 MG CAPSULE PO SCH (21:56)
[2022-01-09] MEDS: LamoTRIgine 25 MG TABLET PO SCH (21:56)
[2022-01-09] MEDS: *INSULIN REGULAR(HUMULIN R)HUM 100 UNIT/ML VIAL SQ PRN (22:11)
[2022-01-10] MEDS: ZOLPIDEM TARTRATE 5 MG TABLET PO PRN (02:55)
[2022-01-10] MEDS: LEVOTHYROXINE SODIUM 125 MCG TABLET PO SCH (06:47)
[2022-01-10] MEDS: BLOOD SUGAR DIAGNOSTIC 1 EACH STRIP VI SCH ×4 (06:48→21:34)
[2022-01-10] MEDS: INSULIN REGULAR, HUMAN 100 UNIT/ML 3 ML VIAL SQ PRN (06:58)
[2022-01-10 08:00] VITALS: BP 132/55
[2022-01-10] MEDS: ENSURE ENLIVE 237 ML LIQUID (VANILLA) PO SCH ×2 (08:13→17:12)
[2022-01-10] MEDS: Z GUARD REMEDY 4 OZ OINT TP SCH (08:14)
[2022-01-10] MEDS: MULTIVITAMIN/LUTEIN/MINERALS 1 TAB PO SCH (08:17)
[2022-01-10] MEDS: VITAMIN E 400 UNIT CAPSULE PO SCH (08:17)
[2022-01-10] MEDS: ASCORBIC ACID 500 MG TABLET PO SCH (08:17)
[2022-01-10] MEDS: risperiDONE 1 MG TABLET PO SCH ×3 (08:17→22:10)
[2022-01-10] MEDS: CHOLECALCIFEROL 1,000 UNIT TABLET (VIT D3) PO SCH (08:17)
[2022-01-10] MEDS: ASPIRIN EC 81 MG TABLET.DR PO SCH (08:17)
[2022-01-10] MEDS: LISINOPRIL (5MG) 5 MG TABLET PO SCH (08:26)
[2022-01-10 16:00] VITALS: BP 154/77
[2022-01-10 20:15] VITALS: BP 147/72
[2022-01-10 20:20] VITALS: BP 147/72
--- NOTE | 2022-01-10 20:41 | NUR ---
RN NOTES:REFUSED SKIN ASSESSMENT PT. REFUSED SKIN ASSESSMENT AND PHOTOS TAKEN, PER PT.THATS REDICULS I DONT WANT SHOW AND MY SKIN IS FINE ,WHY YOU ARE BOTHERING ME, ENCOURAGED X 3 , RISKS AND BENEFITS, BUT PT. STRONGLY REFUSED, PT. BEHAVIOR UNCOOPERTIVE ANXIOUS , PARANOID .WILL CONTINUE WITH CARE.
[2022-01-10] MEDS: LamoTRIgine 100 MG TABLET PO SCH (21:34)
[2022-01-10] MEDS: ATORVASTATIN 10 MG TABLET PO SCH (21:34)
[2022-01-10] MEDS: NORTRIPTYLINE HCL 25 MG CAPSULE PO SCH (21:35)
--- NOTE | 2022-01-11 00:57 | NUR ---
GPS RN NOTE: NOTIFIED DR. YUAN ABOUT PATIENT'S ACCU CHECK READINGS AND HGA1C LEVEL. PATIENT ALSO REFUSES ACCU CHECKS AT TIMES. DR. YUAN ORDERED ACCU CHECK BEFORE BREAKFAST ONLY. ORDER NOTED AND CARRIED OUT.
[2022-01-11] MEDS: LEVOTHYROXINE SODIUM 125 MCG TABLET PO SCH (07:14)
[2022-01-11] MEDS ORDERED: INSULIN REGULAR, HUMAN 100 UNIT/ML 3 ML VIAL SQ PRN (07:30)
--- NOTE | 2022-01-11 07:30 | NUR ---
PT RECEIVED RESTING COMFORTABLY IN BED. NO S/S OR C/O PAIN OR DISTRESS NOTED. SIDE RAILS UP X2. WILL CONTINUE PLAN OF CARE
[2022-01-11] MEDS: BLOOD SUGAR DIAGNOSTIC 1 EACH STRIP IN SCH (07:54)
[2022-01-11 08:00] VITALS: BP 132/57
--- NOTE | 2022-01-11 08:37 | NUR ---
AYDEE Family Contact: SW contacted patient's Saud ([phone]) to discuss discharge plan. is agreeable of pt going to [facility].
[2022-01-11] MEDS: CHOLECALCIFEROL 1,000 UNIT TABLET (VIT D3) PO SCH (08:47)
[2022-01-11] MEDS: LISINOPRIL (5MG) 5 MG TABLET PO SCH (08:47)
[2022-01-11] MEDS: risperiDONE 1 MG TABLET PO SCH ×3 (08:47→21:36)
[2022-01-11] MEDS: MULTIVITAMIN/LUTEIN/MINERALS 1 TAB PO SCH (08:47)
[2022-01-11] MEDS: VITAMIN E 400 UNIT CAPSULE PO SCH (08:48)
[2022-01-11] MEDS: ASCORBIC ACID 500 MG TABLET PO SCH (08:48)
[2022-01-11] MEDS: Z GUARD REMEDY 4 OZ OINT TP SCH (08:48)
[2022-01-11] MEDS: ENSURE ENLIVE 237 ML LIQUID (VANILLA) PO SCH ×2 (08:48→16:18)
[2022-01-11] MEDS: ASPIRIN EC 81 MG TABLET.DR PO SCH (08:48)
--- NOTE | 2022-01-11 10:03 | NUR ---
Court Hearing Notification: SW contacted patient's Saud ([phone]) to notify of pt's 9650 hearing today. He is aware.
--- NOTE | 2022-01-11 11:44 | NUR ---
Court Hearing: Patient's court hearing for 5270 was today and it was upheld for GD.
[2022-01-11 16:00] VITALS: BP 111/56
[2022-01-11 20:03] VITALS: BP 119/50
[2022-01-11] MEDS: ATORVASTATIN 10 MG TABLET PO SCH (21:26)
[2022-01-11] MEDS: LamoTRIgine 100 MG TABLET PO SCH (21:26)
[2022-01-11] MEDS: NORTRIPTYLINE HCL 25 MG CAPSULE PO SCH (21:27)
--- NOTE | 2022-01-12 05:51 | NUR ---
GPS RN NOTE: PAIN PATIENT C/O LOWER BACK PAIN 12/17 AND REQUESTED TO TAKE TYLENOL. PRN TYLENOL 650 MG PO ADMINISTERED. WILL CONTINUE TO MONITOR.
[2022-01-12] MEDS: LEVOTHYROXINE SODIUM 125 MCG TABLET PO SCH (06:18)
--- NOTE | 2022-01-12 06:18 | NUR ---
GPS RN NOTE: COVID SWAB COLLECTED AND SENT TO LAB.
[2022-01-12 08:00] VITALS: BP 127/55
--- NOTE | 2022-01-12 08:10 | NUR ---
SW Discharge Note: Patient will be discharged to [facility] located at [address] [place] [address]; ([phone]). Transportation will be provided by [facility] at 11AM. Patients Saud ([phone]) is aware and agreeable of discharge. Su goodwin ([phone]) confirmed that patient is welcomed to [facility]. Patient is alert and oriented x2. Patient denies visual/auditory hallucinations. Patient denies suicidal or homicidal ideation. Patient will follow up with (Psychiatrist) Dr. Solorzano located at [address], [place] [address]; ([phone]). Patient will follow up with (Wire Border Assembler) Dr. Hernandez located at [address], [place] ([phone]). Patient presents with euthymic mood and congruent affect.
[2022-01-12] MEDS: BLOOD SUGAR DIAGNOSTIC 1 EACH STRIP IN SCH (08:28)
[2022-01-12] MEDS: ENSURE ENLIVE 237 ML LIQUID (VANILLA) PO SCH (08:31)
[2022-01-12] MEDS: MULTIVITAMIN/LUTEIN/MINERALS 1 TAB PO SCH (09:19)
[2022-01-12] MEDS: ASPIRIN EC 81 MG TABLET.DR PO SCH (09:19)
[2022-01-12] MEDS: CHOLECALCIFEROL 1,000 UNIT TABLET (VIT D3) PO SCH (09:19)
[2022-01-12 09:20] VITALS: BP 127/55
[2022-01-12] MEDS: LISINOPRIL (5MG) 5 MG TABLET PO SCH (09:20)
[2022-01-12] MEDS: ASCORBIC ACID 500 MG TABLET PO SCH (09:20)
[2022-01-12] MEDS: VITAMIN E 400 UNIT CAPSULE PO SCH (09:20)
[2022-01-12] MEDS: risperiDONE 1 MG TABLET PO SCH (09:21)
[2022-01-12] MEDS: Z GUARD REMEDY 4 OZ OINT TP SCH (09:55)
--- NOTE | 2022-01-12 10:30 | NUR ---
refused discharge photos.
--- NOTE | 2022-01-12 11:25 | NUR ---
RECEIVED PT. IN AM,VERY PLEASANT,COOPERATIVE.DC ORDER FROM DR. WILLARD AND DR. JOHNSON.ALL PAPERS SIGNED,INCLUDING BELONGING SHEET.REPORT CALLED TO FACILITY.STUDENT AFFAIRS VICE PRESIDENT HERE.GIVEN BRIEF REPORT.PT. DENIES SUICIDAL,HOMICIDAL IDEATION WELL DENIALOF HALLUCINATIONS.PLACED IN W/C AND TAKEN TO FACILITY VIA VAN.
== END 2022-01-12 11:25 | DRG 885 ==
LOC: GPS 16:31
PROVIDERS: ADMIT Psychiatry & Neurology Psychiatry; ATTEND Internal Medicine
DX: F25.1 Schizoaffective disorder, depressive type (principal); N17.0 Acute kidney failure with tubular necrosis; G93.40 Encephalopathy, unspecified; Z68.41 Body mass index [BMI] 40.0-44.9, adult; E03.9 Hypothyroidism, unspecified; I10 Essential (primary) hypertension; G40.909 Epilepsy, unspecified, not intractable, without status epilepticus; E66.9 Obesity, unspecified; Z79.899 Other long term (current) drug therapy; F41.9 Anxiety disorder, unspecified; Z73.6 Limitation of activities due to disability; E78.5 Hyperlipidemia, unspecified; F94.0 Selective mutism; Z91.81 History of falling; G31.83 Neurocognitive disorder with Lewy bodies; F02.80 Dementia in other diseases classified elsewhere, unspecified severity, without behavioral disturbance, psychotic disturbance, mood disturbance, and anxiety; F29 Unspecified psychosis not due to a substance or known physiological condition; R53.1 Weakness; R27.8 Other lack of coordination
CPT/HCPCS: 36415; 80048-TC; 80053-TC; 80061-TC; 80175; 82962-TC; 84443-TC; 87081-TC; 97116-TC; 97530-TC; J1815

== ENCOUNTER 2022-06-29 14:17 | Inpatient (IN) | payer MEDICARE, OTHER ==
[~2022-06-29] VITALS: Ht 157.5 cm; Wt 102.1 kg
[~2022-06-29 14:17] MED LIST: ASCO500T10 PO; ASPI-1420 PO; ATOR10TA PO; CHOL500062 PO; LAMO25TA10 PO; LEVO125T8 PO; LISI2.5T2 PO; MULT-479 PO; NORT25CA PO; RISP2TAB85 PO; VITA400C74 PO
--- NOTE | 2022-06-29 14:35 | NUR ---
RN-ADMISSION NOTES ADMITTED 72 Y.O FEMALE PATIENT FROM [facility]. PATIENT ON 5150 HOLD FOR GD ADULT. PATIENT UNDER DR. JOHNSON ( PSYCHIATRIST ) AND DUONG MCGRATH ( PASTE UP COPY CAMERA OPERATOR) BOTH MADE AWARE OF THE ADMISSION. UPON FACE TO FACE ASSESSMENT, PATIENT A/O X3 WITH DEPRESSED MOOD BUT COOPERATIVE DURING ADMISSION PROCESS. PATIENT VERBALIZED DEPRESSION BUT DENIES SI/HI . ADVISEMENT WAS GIVEN TO THE PATIENT INCLUDING PATIENT'S RIGHT AND MEDICATION BOOKLET. PATIENT ABLE TO AMBULATE TO THE BATHROOM WITH WALKER. ORIENTED PATIENT IN THE UNIT AND UNIT POLICIES. PATIENT'S CARLINE WILKINS [phone] WAS MADE AWARE .
--- NOTE | 2022-06-29 14:58 | NUR ---
AYDEE Clinical Note: Pt placed on a 5150 hold for GD. Pt has been depressed at home and has been feeling suicidal. AYDEE contacted pt's Saud ([phone]) and notified of admission and stated when pt is stable pt is welcomed back home.
--- NOTE | 2022-06-29 14:58 | NUR ---
Family Contact: SW contacted pt's Saud ([phone]) and notified of admission and stated when pt is stable pt is welcomed back home.
--- NOTE | 2022-06-29 14:58 | NUR ---
AYDEE Initial Discharge Plan: Pt currently resides at [address] [place] [address], [place] [address]; ([phone]). AYDEE contacted pt's Saud ([phone]) and notified of admission and stated when pt is stable pt is welcomed back home. AYDEE will work with the MD, family, and treatment team to help coordinate appropriate discharge.
[2022-06-29] MEDS ORDERED: MAG HYDROX/AL HYDROX/SIMETH 30 ML UDC PO PRN (15:00)
[2022-06-29] MEDS ORDERED: ACETAMINOPHEN 325 MG TABLET PO PRN (15:00)
[2022-06-29] MEDS ORDERED: MAGNESIUM HYDROXIDE 30 ML UDC PO PRN (15:00)
[2022-06-29] MEDS ORDERED: BLOOD SUGAR DIAGNOSTIC 1 EACH STRIP IN ONE (15:00)
--- NOTE | 2022-06-29 15:27 | NUR ---
Treatment Plan: Pt refused to sign treatment plan and was suspicious.
--- NOTE | 2022-06-29 19:26 | NUR ---
RN-NOTES PATIENT IN THE ROOM,A/O X3 GUARDED,CALM, NO ACUTE DISTRESS NOTED.ALL NEEDS ATTENDED AND ANTICIPATED. AMBULATORY WITH WALKER. WILL CONT. MONITORING FOR SAFETY AND BEHAVIOR. WILL ENDORSE TO INCOMING NURSE FOR CONTINUITY OF CARE.
[2022-06-29 20:11] VITALS: BP 163/63
[2022-06-29] MEDS: ATORVASTATIN 10 MG TABLET PO SCH (21:40)
[2022-06-29] MEDS: ZOLPIDEM TARTRATE 5 MG TABLET PO PRN (21:41)
[2022-06-30] MEDS: LORAZEPAM 0.5 MG TABLET PO PRN (02:21)
[2022-06-30 08:00] VITALS: BP 139/81
[2022-06-30] MEDS: LEVOTHYROXINE SODIUM 125 MCG TABLET PO SCH (08:21)
--- NOTE | 2022-06-30 09:00 | NUR ---
NURSE NOTE: PATIENT IN HER ROOM. PATIENT REMAINS PASSIVE, AFFECT IS FLAT. SAYS SHE IS EMBARRASSED TO BE HERE. PT IN STABLE CONDITION. NO SI/HI. WILL CONT TO MONITOR.
[2022-06-30] MEDS: ASPIRIN EC 81 MG TABLET.DR PO SCH (09:18)
[2022-06-30] MEDS: LISINOPRIL (5MG) 5 MG TABLET PO SCH (09:19)
[2022-06-30] MEDS: LamoTRIgine 25 MG TABLET PO SCH ×2 (10:35→21:40)
[2022-06-30] MEDS: risperiDONE 1 MG TABLET PO SCH ×2 (10:35→21:39)
[2022-06-30 11:28] LABS: CHOLESTEROL 123 mg/dL (<200); HDL CHOLESTEROL 78 mg/dL (40-60); LDL 34 mg/dL (0-99); TRIGLYCERIDES 46 mg/dL (30-150)
[2022-06-30 12:11] LABS: ALBUMIN 3.9 g/dL (3.4-5.0); BILIRUBIN,TOTAL 0.3 mg/dL (0.2-1.0); CALCIUM, SERUM 9.4 mg/dL (8.5-10.1); CREATININE 1.1 mg/dL (0.6-1.3); POTASSIUM 4.2 mmol/L (3.5-5.1); TOTAL PROTEIN, SERUM 7.5 g/dL (6.4-8.2)
[2022-06-30 16:00] VITALS: BP 133/63
--- NOTE | 2022-06-30 19:33 | NUR ---
GPS RN OPENING NOTES: RECEIVED PATIENT IN BED, AWAKE, A/O X2. PATIENT APPEARS DEPRESSED, FLAT AFFECT, PASSIVE, WITHDRAWN, DISORGANIZED, LOOSE ASSOCIATIONS. PER PATIENT "MY DAY WASN'T GOOD", BUT UNABLE TO GIVE REASONS WHY. PATIENT ENCOURAGED TO VERBALIZE FEELINGS. PATIENT HAS NO S/S OF DISTRESS. RESPIRATION EVEN AND UNLABORED WITH EQUAL RISE AND FALL OF THE CHEST, ON ROOM AIR. PATIENT IS OFFERED FLUID AND SNACKS TOLERATED. BED IN LOWEST LOCKED POSITION, CALL LIGHT WITHIN REACH. WILL CONTINUE TO MONITOR Q15 MINS FOR MOOD, BEHAVIOR AND SAFETY.
[2022-06-30 20:00] VITALS: BP 139/64
[2022-06-30] MEDS: ATORVASTATIN 10 MG TABLET PO SCH (21:40)
[2022-06-30] MEDS: NORTRIPTYLINE HCL 25 MG CAPSULE PO SCH (21:43)
[2022-06-30] MEDS: ZOLPIDEM TARTRATE 5 MG TABLET PO PRN (22:35)
--- NOTE | 2022-06-30 22:39 | NUR ---
GPS RN NOTES: PATIENT REQUESTED FOR SLEEP MEDICATION. AMBIEN 5MG GIVEN PO AT 2235. WILL CONTINUE TO MONITOR.
[2022-07-01 08:00] VITALS: BP 122/67
[2022-07-01] MEDS: ASPIRIN EC 81 MG TABLET.DR PO SCH (08:40)
[2022-07-01] MEDS: LEVOTHYROXINE SODIUM 125 MCG TABLET PO SCH (08:40)
[2022-07-01] MEDS: LamoTRIgine 25 MG TABLET PO SCH ×2 (08:41→20:32)
[2022-07-01] MEDS: LISINOPRIL (5MG) 5 MG TABLET PO SCH (08:41)
[2022-07-01] MEDS: risperiDONE 1 MG TABLET PO SCH ×2 (08:46→20:33)
[2022-07-01 16:00] VITALS: BP 142/62
[2022-07-01 20:00] VITALS: BP 142/63
--- NOTE | 2022-07-01 20:00 | NUR ---
GPS ICER MACHINE OPENING NOTES: RECEIVED PATIENT IN BED, AWAKE, A/O X2. PATIENT APPEARS DEPRESSED, FLAT AFFECT, PASSIVE, WITHDRAWN, DISORGANIZED, LOOSE ASSOCIATIONS. PER PATIENT "IM NOT FEELING WELL, HAVING GUILTY FEELING" , BUT UNABLE TO GIVE REASONS TO WHAT. PATIENT ENCOURAGED TO VERBALIZE FEELINGS. PATIENT HAS NO S/S OF DISTRESS. RESPIRATION EVEN AND UNLABORED WITH EQUAL RISE AND FALL OF THE CHEST, ON ROOM AIR. BED IN LOWEST LOCKED POSITION, CALL LIGHT WITHIN REACH. WILL CONTINUE TO MONITOR Q15 MINS FOR MOOD, BEHAVIOR AND SAFETY.
[2022-07-01] MEDS: ATORVASTATIN 10 MG TABLET PO SCH (21:41)
[2022-07-01] MEDS: NORTRIPTYLINE HCL 25 MG CAPSULE PO SCH (21:58)
--- NOTE | 2022-07-02 01:14 | NUR ---
Pt asleep, easy to arouse, no sob, breathing even and unlabored. Will cont to monitor and anticipate needs.
--- NOTE | 2022-07-02 05:52 | NUR ---
PROPERTY MAINTENANCE TECHNICIAN CLOSING NOTE PATIENT IN THE ROOM,A/O X3 GUARDED,CALM, NO ACUTE DISTRESS NOTED. NO SIGNIFICANT CHANGE OF CONDITION NOTED DURING SHIFT. COMPLIANT WITH MEDICATIONS, TOLERATED MEDS. ALL NEEDS ATTENDED AND ANTICIPATED. AMBULATORY WITH WALKER. WILL CONT. MONITORING FOR SAFETY AND BEHAVIOR. WILL ENDORSE TO INCOMING AM NURSE FOR CONTINUITY OF CARE.
[2022-07-02 08:00] VITALS: BP 115/59
[2022-07-02] MEDS: LEVOTHYROXINE SODIUM 125 MCG TABLET PO SCH (08:24)
[2022-07-02] MEDS: ASPIRIN EC 81 MG TABLET.DR PO SCH (08:24)
[2022-07-02] MEDS: risperiDONE 1 MG TABLET PO SCH ×2 (08:24→20:49)
[2022-07-02] MEDS: LamoTRIgine 25 MG TABLET PO SCH ×2 (08:28→20:49)
[2022-07-02] MEDS: LISINOPRIL (5MG) 5 MG TABLET PO SCH (09:00)
[2022-07-02 16:00] VITALS: BP 138/59
[2022-07-02 20:40] VITALS: BP 150/71
--- NOTE | 2022-07-02 20:43 | NUR ---
RN NOTES: PATIENT RESTING IN ROOM, NO S/SX OF ACUTE DISTRESS NOTED,FLAT AFFECT,DISORGNIZED,PARANOID, DEPRESSED,GUARDED DENIES SI/HI AT THIS TIME.ENCOURAGE TO VERBALIZED ANY FEELING OR CONCERN,AND ENCOURAGED TO PARTICIPATES GROUP ACTIVITIES, SAFETY MEASURES IN PLACE. WILL CONTINUE TO MONITOR Q15MIN ROUNDS FOR SAFETY AND BEHAVIOR.
[2022-07-02] MEDS: NORTRIPTYLINE HCL 25 MG CAPSULE PO SCH (21:15)
[2022-07-02] MEDS: ATORVASTATIN 10 MG TABLET PO SCH (21:15)
--- NOTE | 2022-07-03 07:41 | NUR ---
RN NOTE RECEIVED PT AWAKE SITTING IN BED. NOT IN DISTRESS. VERBALLY RESPONSIVE. NO COMPLAINTS OF PAIN AT THIS TIME. WILL CONT TO MONITOR.
[2022-07-03 08:00] VITALS: BP 132/61
[2022-07-03] MEDS: LamoTRIgine 25 MG TABLET PO SCH ×2 (08:11→21:30)
[2022-07-03] MEDS: ASPIRIN EC 81 MG TABLET.DR PO SCH (08:11)
[2022-07-03] MEDS: LEVOTHYROXINE SODIUM 125 MCG TABLET PO SCH (08:11)
[2022-07-03] MEDS: LISINOPRIL (5MG) 5 MG TABLET PO SCH (08:12)
[2022-07-03] MEDS: risperiDONE 1 MG TABLET PO SCH ×2 (08:12→21:30)
[2022-07-03 16:00] VITALS: BP 121/65
[2022-07-03 21:01] VITALS: BP 145/69
[2022-07-03] MEDS: ATORVASTATIN 10 MG TABLET PO SCH (21:31)
[2022-07-03] MEDS: NORTRIPTYLINE HCL 25 MG CAPSULE PO SCH (21:34)
[2022-07-03] MEDS: ZOLPIDEM TARTRATE 5 MG TABLET PO PRN (21:40)
--- NOTE | 2022-07-03 22:01 | NUR ---
UNABLE TO SLEEP Patient in bed, request Ambien for sleep. No c/o headache or dizziness. PRN Ambien given. Will monitor hours of sleep.
[2022-07-04] MEDS: LORAZEPAM 0.5 MG TABLET PO PRN (01:39)
--- NOTE | 2022-07-04 01:40 | NUR ---
GPS RN NOTE, PATIENT HAS A COMPLAINT OF FEELING ANXIOUS AND IS REQUESTING ATIVAN AT THIS TIME. PATIENT VITAL SIGNS ARE STABLE. GAVE ATIVAN 1 MG PO Q6HR PRN ORDERED. WILL REASSESS OF FOR ANXIETY AND IW ILL CONTINUE TO MONITOR THIS PATIENT WITH THE HELP OF STAFF.
--- NOTE | 2022-07-04 07:10 | NUR ---
END OF SHIFT Hours of sleep 9. Compliant with medication. No acute events overnight. Fall precaution maintained.
[2022-07-04 08:00] VITALS: BP 114/66
[2022-07-04] MEDS: LISINOPRIL (5MG) 5 MG TABLET PO SCH (08:24)
[2022-07-04] MEDS: LamoTRIgine 25 MG TABLET PO SCH ×2 (08:24→20:46)
[2022-07-04] MEDS: ASPIRIN EC 81 MG TABLET.DR PO SCH (08:24)
[2022-07-04] MEDS: LEVOTHYROXINE SODIUM 125 MCG TABLET PO SCH (08:25)
[2022-07-04] MEDS: risperiDONE 1 MG TABLET PO SCH ×2 (08:25→20:51)
[2022-07-04 16:00] VITALS: BP 129/63
[2022-07-04 20:05] VITALS: BP 129/50
[2022-07-04 20:34] VITALS: BP 129/50
[2022-07-04] MEDS: ATORVASTATIN 10 MG TABLET PO SCH (21:25)
[2022-07-04] MEDS: NORTRIPTYLINE HCL 25 MG CAPSULE PO SCH (21:26)
[2022-07-04] MEDS: ZOLPIDEM TARTRATE 5 MG TABLET PO PRN (22:39)
--- NOTE | 2022-07-04 22:40 | NUR ---
RN NOTE: INSOMNIA PATIENT C/O INABILITY TO SLEEP AND WANTED TO TAKE SLEEPING MEDICINE AT THIS TIME. PRN AMBIEN 5 MG PO ADMINISTERED. WILL CONTINUE TO MONITOR CLOSELY FOR ANY CHANGES. BED ALARM IS ON FOR SAFETY.
--- NOTE | 2022-07-05 06:42 | NUR ---
PATIENT SLEPT WELL AT NIGHT, NO ACUTE CHANGES NOTED. PATIENT REMAINED CALM AND COOPERATIVE THROUGH OUT THE NIGHT.
[2022-07-05] MEDS: LEVOTHYROXINE SODIUM 125 MCG TABLET PO SCH (07:53)
[2022-07-05 08:00] VITALS: BP 131/98
[2022-07-05] MEDS: LISINOPRIL (5MG) 5 MG TABLET PO SCH (09:31)
[2022-07-05] MEDS: ASPIRIN EC 81 MG TABLET.DR PO SCH (09:31)
[2022-07-05] MEDS: LamoTRIgine 25 MG TABLET PO SCH ×2 (09:46→21:07)
[2022-07-05] MEDS: risperiDONE 1 MG TABLET PO SCH ×2 (09:48→21:08)
--- NOTE | 2022-07-05 10:38 | NUR ---
Court Notification: Pt's court hearing for 5250 was today and Saud ([phone]) was notified.
--- NOTE | 2022-07-05 10:38 | NUR ---
Court Hearing: Patient's court hearing for 6890 was today and it was upheld for GD.
--- NOTE | 2022-07-05 10:45 | NUR ---
SEEN BY DR. ESTEBAN. IN STABLE CONDITION.
[2022-07-05 16:00] VITALS: BP 136/54
[2022-07-05 20:05] VITALS: BP 129/61
[2022-07-05] MEDS: ATORVASTATIN 10 MG TABLET PO SCH (21:28)
[2022-07-05] MEDS: NORTRIPTYLINE HCL 25 MG CAPSULE PO SCH (22:15)
[2022-07-05 22:54] VITALS: BP 129/61
[2022-07-06 08:00] VITALS: BP 155/74
--- NOTE | 2022-07-06 08:01 | NUR ---
WOUND CARE CONSULT: PT PRESENTS WITH REDNESS/DISCOLORATION TO LEFT LOWER LEG. RECEIVED CONSULT WHICH READ "SCRATCHES LEG WITH OTHER FOOT". DPM CONSULT CALLED TO DR BELCZYK. HERNANDEZ IN AGREEMENT WITH PLAN OF CARE.
[2022-07-06] MEDS: LEVOTHYROXINE SODIUM 125 MCG TABLET PO SCH (08:15)
[2022-07-06] MEDS: Z GUARD REMEDY 4 OZ OINT TP SCH (09:00)
[2022-07-06] MEDS: risperiDONE 1 MG TABLET PO SCH ×2 (09:38→21:17)
[2022-07-06] MEDS: LamoTRIgine 25 MG TABLET PO SCH ×2 (09:38→21:16)
[2022-07-06] MEDS: ASPIRIN EC 81 MG TABLET.DR PO SCH (09:39)
[2022-07-06] MEDS: LISINOPRIL (5MG) 5 MG TABLET PO SCH (09:39)
[2022-07-06 16:13] VITALS: BP 143/77
[2022-07-06] MEDS: HYDROCORTISONE 2.5% CREAM 28.4 GM TUBE TP SCH (17:24)
--- NOTE | 2022-07-06 19:15 | NUR ---
GPS RN NOTES PATIENT IN HER ROOM RESTING COMFORTABLY IN BED. A/OX2. NO S/SX OF ACUTE DISTRESS NOTED. PATIENT REMAINS PASSIVE, FLAT AFFECT, ISOLATIVE. NO VERBALIZATION OF THOUGHTS AND FEELINGS. SAFETY PRECAUTIONS MAINTAINED.WILL CONTINUE TO MONITOR Q15MIN ROUNDS FOR SAFETY AND BEHAVIOR.
[2022-07-06] MEDS: NORTRIPTYLINE HCL 25 MG CAPSULE PO SCH (21:16)
[2022-07-06] MEDS: ATORVASTATIN 10 MG TABLET PO SCH (21:17)
[2022-07-06 22:27] VITALS: BP 141/59
[2022-07-07] MEDS: LORAZEPAM 0.5 MG TABLET PO PRN (00:24)
[2022-07-07 08:00] VITALS: BP 143/76
[2022-07-07] MEDS: LEVOTHYROXINE SODIUM 125 MCG TABLET PO SCH (08:14)
[2022-07-07] MEDS: LamoTRIgine 25 MG TABLET PO SCH ×2 (08:47→21:46)
[2022-07-07] MEDS: ASPIRIN EC 81 MG TABLET.DR PO SCH (08:47)
[2022-07-07] MEDS: risperiDONE 1 MG TABLET PO SCH ×2 (08:47→21:46)
[2022-07-07] MEDS: LISINOPRIL (5MG) 5 MG TABLET PO SCH (08:48)
[2022-07-07] MEDS: Z GUARD REMEDY 4 OZ OINT TP SCH (08:50)
[2022-07-07] MEDS: HYDROCORTISONE 2.5% CREAM 28.4 GM TUBE TP SCH ×2 (08:50→17:48)
[2022-07-07 16:00] VITALS: BP 154/68
[2022-07-07 20:00] VITALS: BP 138/71
[2022-07-07] MEDS: ATORVASTATIN 10 MG TABLET PO SCH (21:46)
[2022-07-07] MEDS: NORTRIPTYLINE HCL 25 MG CAPSULE PO SCH (21:46)
[2022-07-08 08:00] VITALS: BP 143/67
[2022-07-08] MEDS: LISINOPRIL (5MG) 5 MG TABLET PO SCH (08:06)
[2022-07-08] MEDS: LamoTRIgine 25 MG TABLET PO SCH ×2 (08:06→20:49)
[2022-07-08] MEDS: risperiDONE 1 MG TABLET PO SCH ×2 (08:06→20:50)
[2022-07-08] MEDS: ASPIRIN EC 81 MG TABLET.DR PO SCH (08:06)
[2022-07-08] MEDS: LEVOTHYROXINE SODIUM 125 MCG TABLET PO SCH (08:06)
[2022-07-08] MEDS: HYDROCORTISONE 2.5% CREAM 28.4 GM TUBE TP SCH ×2 (09:32→16:20)
[2022-07-08] MEDS: Z GUARD REMEDY 4 OZ OINT TP SCH (09:33)
--- NOTE | 2022-07-08 10:20 | NUR ---
Received pt. awake in bed, responsive to staffs, no distress and no agitation noted. Ate 100% for breakfast, compliant on meds and cooperative with skin treatment. Pt. took shower, encouraged to verbalize feelings and motivated to attend group activity. Needs attended and will continue to monitor for safety.
[2022-07-08 16:00] VITALS: BP 140/85
[2022-07-08 20:00] VITALS: BP 139/91
--- NOTE | 2022-07-08 20:14 | NUR ---
RN NOTES : PATIENT RESTING IN HER ROOM . NO S/SX OF ACUTE DISTRESS NOTED. PATIENT REMAINS PASSIVE, FLAT AFFECT, ISOLATIVE,EASILY AGITATED, PARANOID NEEDS MINIMAL ASSISTANCE WITH ADL'S. ENCOURAGED PT TO ATTEND IN GROUP ACTIVITIES. ENCOURAGED TO VERBALIZATION OF THOUGHTS AND FEELINGS. SAFETY PRECAUTIONS MAINTAINED.WILL CONTINUE TO MONITOR Q15MIN ROUNDS FOR SAFETY AND BEHAVIOR.
[2022-07-08] MEDS: ATORVASTATIN 10 MG TABLET PO SCH (21:09)
[2022-07-08] MEDS: NORTRIPTYLINE HCL 25 MG CAPSULE PO SCH (21:09)
[2022-07-09 08:00] VITALS: BP 141/74
[2022-07-09] MEDS: LISINOPRIL (5MG) 5 MG TABLET PO SCH (08:20)
[2022-07-09] MEDS: LamoTRIgine 25 MG TABLET PO SCH ×2 (08:20→21:10)
[2022-07-09] MEDS: ASPIRIN EC 81 MG TABLET.DR PO SCH (08:20)
[2022-07-09] MEDS: risperiDONE 1 MG TABLET PO SCH ×2 (08:20→21:10)
[2022-07-09] MEDS: LEVOTHYROXINE SODIUM 125 MCG TABLET PO SCH (08:21)
[2022-07-09] MEDS: Z GUARD REMEDY 4 OZ OINT TP SCH (08:21)
[2022-07-09] MEDS: HYDROCORTISONE 2.5% CREAM 28.4 GM TUBE TP SCH ×2 (08:38→16:12)
[2022-07-09 16:00] VITALS: BP 107/66
[2022-07-09 20:52] VITALS: BP 146/71
[2022-07-09] MEDS: ATORVASTATIN 10 MG TABLET PO SCH (21:10)
[2022-07-09] MEDS: NORTRIPTYLINE HCL 25 MG CAPSULE PO SCH (21:12)
[2022-07-10 08:00] VITALS: BP 155/69
[2022-07-10] MEDS: risperiDONE 1 MG TABLET PO SCH ×2 (08:19→20:50)
[2022-07-10] MEDS: LamoTRIgine 25 MG TABLET PO SCH ×2 (08:20→20:44)
[2022-07-10] MEDS: LISINOPRIL (5MG) 5 MG TABLET PO SCH (08:20)
[2022-07-10] MEDS: ASPIRIN EC 81 MG TABLET.DR PO SCH (08:20)
[2022-07-10] MEDS: HYDROCORTISONE 2.5% CREAM 28.4 GM TUBE TP SCH ×2 (08:21→17:21)
[2022-07-10] MEDS: Z GUARD REMEDY 4 OZ OINT TP SCH (08:21)
[2022-07-10] MEDS: LEVOTHYROXINE SODIUM 125 MCG TABLET PO SCH (08:21)
[2022-07-10 16:00] VITALS: BP 154/83
--- NOTE | 2022-07-10 20:23 | NUR ---
RN NOTES: RECEIVED PATIENT RESTING IN HER ROOM . NO S/SX OF ACUTE DISTRESS NOTED. PATIENT REMAINS PASSIVE, FLAT AFFECT, ISOLATIVE,EASILY AGITATED, PARANOID NEEDS MINIMAL ASSISTANCE WITH ADL'S. ENCOURAGED PT TO ATTEND IN GROUP ACTIVITIES. ENCOURAGED TO VERBALIZATION OF THOUGHTS AND FEELINGS. SAFETY PRECAUTIONS MAINTAINED.WILL CONTINUE TO MONITOR Q15MIN ROUNDS FOR SAFETY AND BEHAVIOR.
[2022-07-10 20:49] VITALS: BP 138/65
[2022-07-10] MEDS: ATORVASTATIN 10 MG TABLET PO SCH (21:03)
[2022-07-10] MEDS: NORTRIPTYLINE HCL 25 MG CAPSULE PO SCH (21:03)
[2022-07-11 08:00] VITALS: BP 150/71
[2022-07-11] MEDS: ASPIRIN EC 81 MG TABLET.DR PO SCH (08:53)
[2022-07-11] MEDS: risperiDONE 1 MG TABLET PO SCH ×2 (08:54→20:20)
[2022-07-11] MEDS: LEVOTHYROXINE SODIUM 125 MCG TABLET PO SCH (08:54)
[2022-07-11] MEDS: LamoTRIgine 25 MG TABLET PO SCH ×2 (08:54→20:18)
[2022-07-11] MEDS: LISINOPRIL (5MG) 5 MG TABLET PO SCH (08:54)
[2022-07-11] MEDS: Z GUARD REMEDY 4 OZ OINT TP SCH (09:40)
[2022-07-11] MEDS: HYDROCORTISONE 2.5% CREAM 28.4 GM TUBE TP SCH ×2 (09:40→16:32)
[2022-07-11 16:10] VITALS: BP 135/66
[2022-07-11 20:26] VITALS: BP 140/70
[2022-07-11] MEDS: ATORVASTATIN 10 MG TABLET PO SCH (21:30)
[2022-07-11] MEDS: NORTRIPTYLINE HCL 25 MG CAPSULE PO SCH (21:30)
[2022-07-12 08:00] VITALS: BP 137/67
[2022-07-12] MEDS: LEVOTHYROXINE SODIUM 125 MCG TABLET PO SCH (08:03)
[2022-07-12] MEDS: risperiDONE 1 MG TABLET PO SCH ×2 (08:26→20:59)
[2022-07-12] MEDS: ASPIRIN EC 81 MG TABLET.DR PO SCH (08:26)
[2022-07-12] MEDS: LISINOPRIL (5MG) 5 MG TABLET PO SCH (08:26)
[2022-07-12] MEDS: LamoTRIgine 25 MG TABLET PO SCH ×2 (08:26→20:59)
[2022-07-12] MEDS: Z GUARD REMEDY 4 OZ OINT TP SCH (08:58)
[2022-07-12] MEDS: HYDROCORTISONE 2.5% CREAM 28.4 GM TUBE TP SCH ×2 (08:58→17:00)
--- NOTE | 2022-07-12 09:26 | NUR ---
RN-CO: PATIENT IS CALM AND COOPERATIVE TO CARE. DENIED SUICIDAL AND HOMICIDAL IDEATION. SHE IS ISOLATIVE BUT NOW SHE STARTS TO SOCIALIZE TO HER PEERS AND PARTICIPATE IN GROUP ACTIVITIES. SHE DENIES PAIN AND DISCOMFORTS. I WILL CONTINUE TO MONITOR AND PROVIDE CARE.
--- NOTE | 2022-07-12 11:57 | NUR ---
AYDEE Coordination of Care: Pt will follow-up with Psychiatrist, Dr. Cooper located at [address] [place] [address] ([phone]) on July 15 at 1:30PM.
[2022-07-12 16:00] VITALS: BP 139/68
--- NOTE | 2022-07-12 17:10 | NUR ---
RN-CO: PT REFUSED HYDROCORTISONE CREAM AND STATED "THANKS, BUT I DON'T NEED IT NOW."
[2022-07-12 20:14] VITALS: BP 129/66
[2022-07-12] MEDS: ATORVASTATIN 10 MG TABLET PO SCH (21:17)
[2022-07-12] MEDS: NORTRIPTYLINE HCL 25 MG CAPSULE PO SCH (21:17)
[2022-07-13] MEDS: LEVOTHYROXINE SODIUM 125 MCG TABLET PO SCH (07:52)
[2022-07-13 08:00] VITALS: BP 144/69
[2022-07-13] MEDS: risperiDONE 1 MG TABLET PO SCH ×2 (08:22→21:25)
[2022-07-13] MEDS: ASPIRIN EC 81 MG TABLET.DR PO SCH (08:22)
[2022-07-13] MEDS: LamoTRIgine 25 MG TABLET PO SCH ×2 (08:23→21:26)
[2022-07-13] MEDS: LISINOPRIL (5MG) 5 MG TABLET PO SCH (08:23)
[2022-07-13] MEDS: HYDROCORTISONE 2.5% CREAM 28.4 GM TUBE TP SCH ×2 (09:35→16:43)
[2022-07-13] MEDS: Z GUARD REMEDY 4 OZ OINT TP SCH (09:35)
[2022-07-13 16:05] VITALS: BP 161/92
[2022-07-13 20:42] VITALS: BP 149/57
[2022-07-13] MEDS: NORTRIPTYLINE HCL 25 MG CAPSULE PO SCH (21:26)
[2022-07-13] MEDS: ATORVASTATIN 10 MG TABLET PO SCH (21:26)
[2022-07-14] MEDS: LEVOTHYROXINE SODIUM 125 MCG TABLET PO SCH (07:40)
[2022-07-14 08:00] VITALS: BP 129/72
[2022-07-14] MEDS: ASPIRIN EC 81 MG TABLET.DR PO SCH (08:27)
[2022-07-14] MEDS: HYDROCORTISONE 2.5% CREAM 28.4 GM TUBE TP SCH ×2 (08:28→17:33)
[2022-07-14] MEDS: LISINOPRIL (5MG) 5 MG TABLET PO SCH (08:28)
[2022-07-14] MEDS: Z GUARD REMEDY 4 OZ OINT TP SCH (08:28)
--- NOTE | 2022-07-14 09:09 | NUR ---
SNF Contact: AYDEE sent clinicals to Su goodwin from [facility] ([phone]) for placement. AYDEE sent H & P, progress notes, and medication list. Su stated pt is accepted and they will provide transportation 07/15 at 11AM.
--- NOTE | 2022-07-14 09:34 | NUR ---
Family Contact: SW contacted pt's Saud ([phone]) and discussed placement to [facility] and he was agreeable.
[2022-07-14] MEDS: risperiDONE 1 MG TABLET PO SCH ×2 (09:44→21:02)
[2022-07-14] MEDS: LamoTRIgine 25 MG TABLET PO SCH ×2 (11:15→21:00)
[2022-07-14 16:00] VITALS: BP 140/72
[2022-07-14 20:00] VITALS: BP 141/58
--- NOTE | 2022-07-14 20:00 | NUR ---
NURSE NOTE: COVID TEST DONE AT THIS TIME. DELIVERED TO LAB. WILL CONT TO MONITOR.
[2022-07-14] MEDS: ATORVASTATIN 10 MG TABLET PO SCH (21:00)
[2022-07-14] MEDS: NORTRIPTYLINE HCL 25 MG CAPSULE PO SCH (21:03)
[2022-07-15 08:00] VITALS: BP 130/72
--- NOTE | 2022-07-15 08:06 | NUR ---
SW Discharge Note: Patient will be discharged to [facility] located at [address] [place] [address]; ([phone]). Transportation will be provided by [facility] at 11AM. Patients Saud ([phone]) is aware and agreeable of discharge. Su goodwin ([phone]) confirmed that patient is welcomed to [facility]. Patient is alert and oriented x2. Patient denies visual/auditory hallucinations. Patient denies suicidal or homicidal ideation. Patient will follow up with (Psychiatrist) Dr. Solorzano located at [address], [place] [address]; ([phone]). Patient will follow up with (Access Coordinator) Dr. Hernandez located at [address], [place] ([phone]). Patient presents with euthymic mood and congruent affect.
[2022-07-15 08:39] VITALS: BP 130/72
[2022-07-15] MEDS: risperiDONE 1 MG TABLET PO SCH (08:39)
[2022-07-15] MEDS: LISINOPRIL (5MG) 5 MG TABLET PO SCH (08:39)
[2022-07-15] MEDS: LamoTRIgine 25 MG TABLET PO SCH (08:39)
[2022-07-15] MEDS: ASPIRIN EC 81 MG TABLET.DR PO SCH (08:40)
[2022-07-15] MEDS: LEVOTHYROXINE SODIUM 125 MCG TABLET PO SCH (08:40)
[2022-07-15] MEDS: HYDROCORTISONE 2.5% CREAM 28.4 GM TUBE TP SCH (09:33)
[2022-07-15] MEDS: Z GUARD REMEDY 4 OZ OINT TP SCH (09:34)
--- NOTE | 2022-07-15 09:41 | NUR ---
Dr. Mehta gave an order to D/C hold and D/C to [facility] and to follow up with psych and medical doctors. Psychiatrist ordered to continue same meds including prn. Pt. without distress, denies suicidal and homicidal. Belongings ready and discharge papers ready.
--- NOTE | 2022-07-15 10:47 | NUR ---
Dr. Bernabe made aware of the discharge and ordered to continue same meds including prn. Report give to Lauren RAYA over the facility. Pt. signed the discharge papers. Addendum: 07/15/22 at 1320 by DEEDEE OROSCO RN Picture taken for the skin issue.
--- NOTE | 2022-07-15 13:10 | NUR ---
Pt. left the unit and was picked up by facility transportation and the oil transport driver is Esteban. Pt. was transported via a wheelchair and escorted by staff to the lobby with belongings. Left without distress, v/s taken: BP 153/73, OH 86, RR 18, temp 98.0 and oxygen sat 96%.
== END 2022-07-15 13:10 | DRG 885 ==
LOC: GPS 14:17
PROVIDERS: ADMIT Psychiatry & Neurology Psychiatry; ATTEND Student in an Organized Health Care Education/Training Program
DX: F25.1 Schizoaffective disorder, depressive type (principal); F23 Brief psychotic disorder; F41.9 Anxiety disorder, unspecified; F03.90 Unspecified dementia, unspecified severity, without behavioral disturbance, psychotic disturbance, mood disturbance, and anxiety; Z20.822 Contact with and (suspected) exposure to COVID-19; Z79.82 Long term (current) use of aspirin; Z79.899 Other long term (current) drug therapy; Z73.6 Limitation of activities due to disability; R53.1 Weakness; E78.5 Hyperlipidemia, unspecified; R27.8 Other lack of coordination; Z91.81 History of falling; E03.9 Hypothyroidism, unspecified; E66.01 Morbid (severe) obesity due to excess calories; F32.A Depression, unspecified; R73.03 Prediabetes; I10 Essential (primary) hypertension; G40.909 Epilepsy, unspecified, not intractable, without status epilepticus; S90.02XA Contusion of left ankle, initial encounter; X58.XXXA Exposure to other specified factors, initial encounter; Y92.9 Unspecified place or not applicable
CPT/HCPCS: 36415; 80053-TC; 80061-TC; 82962-TC; 87081-TC